=== PATIENT | female | born 1965 | race Caucasian/White ===

== ENCOUNTER 2022-02-23 16:40 | Emergency (ER) | payer OTHER, SELFPAY ==
--- NOTE | ~2022-02-23 | CT_ITS ---
EXAMINATION: CTA chest PE protocol DATE: 02/23/2022 19:25 INDICATION: Shortness of breath TECHNIQUE: Computed tomography angiography (CTA) of the chest was performed with 100 mL Omnipaque-350 intravenous contrast timed to evaluate the pulmonary arteries. Coronal maximum intensity projection 3D-reconstructions were created by the technologist. The dose-length product (DLP) was 440.56 mGy-cm. Automated exposure control and iterative reconstruction technique were employed. COMPARISON: None. FINDINGS: The pulmonary arteries are well-opacified. No pulmonary embolism is identified. Cardiomegal y is noted. There is mild dependent atelectasis. The lungs are free of acute opacities. There is no p leural effusion or pneumothorax. There is mild thoracic spondylosis. There is mild bilateral hilar ly mphadenopathy, likely reactive. A dual-lead cardiac pacemaker of the left chest wall ends with leads in expected locations. Hyperattenuating material in the distal esophagus and proximal stomach likely reflects an ingested medication. The gallbladder is surgically absent. IMPRESSION: 1. No pulmonary embolism or acute cardiopulmonary abnormality. Reviewed, dictated and finalized at location F.
--- NOTE | ~2022-02-23 | XR_ITS ---
EXAMINATION: XR chest 2V DATE: 02/23/2022 18:00 INDICATION: Shortness of breath and chest pain TECHNIQUE: PA and lateral views of the chest are obtained. COMPARISON: None available FINDINGS: The lungs are free of acute opacities. There is no pleural effusion or pneumothorax. The ca rdiomediastinal silhouette is normal. There is mild thoracic spondylosis. There is a dual-lead pacema ker of the left chest wall. Surgical clips in the upper abdomen on the lateral view are likely from p rior cholecystectomy. IMPRESSION: 1. No acute cardiopulmonary abnormality. Reviewed, dictated and finalized at location F.
[2022-02-23 17:31] VITALS: BP 88/54; PULSE 40; RESP 16; TEMP 36.3; O2SAT 97
[2022-02-23 17:37] VITALS: BP 119/93; PULSE 81; RESP 15; O2SAT 97
--- NOTE | 2022-02-23 17:42 | ECG_ITS ---
Measurements Intervals [place] Rate: 74 P: -26 ME: 146 QRS: -26 QRSD: 113 T: 151 QT: 365 QTc: 406 Interpretive Statements SINUS RHYTHM WITH FREQUENT VENTRICULAR PREMATURE COMPLEXES LEFT ATRIAL ENLARGEMENT LEFTWARD AXIS LEFT VENTRICULAR HYPERTROPHY NONSPECIFIC ST & T-WAVE ABNORMALITY NO PREVIOUS ECG AVAILABLE FOR COMPARISON Electronically Signed On 02-23-2022 21:43:25 CDT by Jose Smith M.D.
--- NOTE | 2022-02-23 17:51 | PC.NURSE ---
called lab and spoke with Jeb to add on the BNP ordered -[id number]
[2022-02-23 17:55] LABS: Basophils Percent Auto 0.3 % (0.2-1.2); Eosinophils Percent Auto 0.5 % (0-4.4); Hematocrit 45.1 % (37.0-47.0); Immature Granulocyte Absolute 0.01 K/mm3 (0.00-0.031); Immature Granulocyte Percent A 0.2 % (0-0.5); Lymphocytes Absolute Auto 1.14 K/mm3 (0.9-3.2); Lymphocytes Percent Auto 18.7 % (18.3-44.2); Mean Corpuscular HGB Conc 33.3 g/dl (32-36); Mean Corpuscular Hemoglobin 32.6 pg (26-34); Mean Platelet Volume 10.9 fl (7.4-10.4); Monocytes Absolute Auto 0.5 K/mm3 (0.1-0.6); Neutrophils Absolute Auto 4.4 K/mm3 (1.3-6.7); Neutrophils Percent Auto 72.3 % (45.5-73.1); Platelet Count Result 221 k/mm3 (150-375); Red Cell Distribution Width 13.1 % (11.5-14.5); White Blood Count 6.1 K/mm3 (4.5-10.0)
[2022-02-23 18:04] LABS: Alanine Aminotransferase 20 U/L (6-35); Albumin Level 3.9 g/dL (3.5-5.1); Alkaline Phosphatase 91 U/L (38-126); Anion Gap 6 mmol/L (8-16); Aspartate Amino Transferase 52 U/L (14-36); Bilirubin,Total 0.4 mg/dL (0.2-1.3); Blood Urea Nitrogen 14 mg/dL (7-17); Calcium 8.9 mg/dL (8.4-10.2); Carbon Dioxide 27 mmol/L (22-30); Chloride 110 mmol/L (98-107); Estimated CRCL calculation 51 ml/min; Estimated Glomerular Filt Rate 46; Glucose 140 mg/dL (65-110); Lipase 56 U/L (23-300); Potassium 3.3 mmol/L (3.4-5.0); Sodium 143 mmol/L (137-145)
[2022-02-23 18:07] LABS: INR 1.1; Partial Thromboplastin Time 29.9 SECONDS (22.3-36.8); Prothrombin Time 13.6 Seconds (11.1-14.7)
[2022-02-23 18:17] LABS: Troponin I < 0.012 ng/mL (0.000-0.034)
--- NOTE | 2022-02-23 18:23 | PC.NURSE ---
called lab and spoke with Jeb to add on the BNP and D Dimer ordered - [id number]
[2022-02-23 18:40] LABS: D Dimer 1.13 ug/mL (<0.48)
--- NOTE | 2022-02-23 18:42 | ED.CHESTPAIN ---
HPI - Chest Pain General Chief Complaint: Shortness of Breath/Dyspnea Stated Complaint: SOB Time Seen by Provider: 02/23/22 17:44 Source: patient Mode of arrival: wheelchair Limitations: no limitations History of Present Illness HPI narrative: This is a 56 year old female with history of CHF, COPD, and defibrillator who presents for evaluation of chest pain and shortness of breath. Patient states she was sitting in her recliner when she developed midsternal chest pain. This pain started 1 hour ago and she describes pain has sharp and pressure. She also reports having mid back pain as well. She denies cough, fever, nausea, vomiting, abdominal pain, dysuria. She denies history of stents or blockages. She was hospitalized at [facility] 1 week ago for CHF. She denies any changes to her diuretic but she does reports her carvedilol was increased to during this past hospitalization. complaint: chest pain Onset (ago): hour(s) (1) Timing of current episode: constant Prior episodes: Yes Onset: during rest Pain location: substernal Pain radiation: back Quality: sharp Relieving factors: nothing Exacerbating factors: nothing Associated symptoms: dyspnea Related Data Allergies Allergy/AdvReac Type Severity Reaction Status Date / Time adhesive tape AdvReac Hives Verified 02/23/22 17:43 strawberry AdvReac Rash Verified 02/23/22 17:43 Review of Systems Review of Systems: All systems reviewed & are unremarkable except as noted in HPI and below Constitutional: Constitutional: Denies chills and Denies fatigue ENT: Denies dizziness Cardiovascular: Cardiovascular: Reports chest pain, Denies rapid heart rate and Denies radiating jaw, neck or arm pain Respiratory: Respiratory: Denies chest congestion and Reports dyspnea Gastrointestinal: Gastrointestinal: Denies abdominal pain, Denies bloating, Denies constipation, Denies heartburn and Denies nausea PMFSH Past Medical History Medical History (Updated 02/23/22 @ 22:17 by Nanette Callejas MD) Brain aneurysm Cardiac defibrillator in place CHF (congestive heart failure) Emphysema/COPD Social History Social History (Updated 02/23/22 @ 18:49 by Nanette Callejas MD) Smoking status: Never smoker Comments surgical history- defibrillator placement Exam Const: General: healthy appearing Orientation/consciousness: patient oriented x3 HENMT: Head: normal to inspection Eyes: EOM: EOMs intact bilaterally Resp: Effort & Inspection: normal respiratory effort, no retractions, not tachypneic and no use of accessory muscles Auscultation: clear to auscultation bilaterally Cardio: Rate: regular rate Rhythm: regular rhythm Heart sounds: no murmurs GI: GI Palp: Yes Soft to palpation, No Tenderness to palpation present (GI), No Guarding due to palpation present (GI) and No Rigid due to palpation Auscultation: normal bowel sounds Skin: General skin exam: normal color Neuro: General: patient oriented x3, moves all extremities and CN's II-XI intact bilaterally Extrem: General: normal to inspection Psych: Mental Status: mental status grossly normal Course Reevaluation(s) Reevaluation #1: PAtient denies any chest pain, shortness of breath or dizziness. Patient's manual blood pressure was 100/78. Patient denies dizziness or lightheadness. She reports her blood pressure is normally low. Patient has heart score of 3. I discussed and offered observation and photographer model consultation in hospital. PAtient declines. Date: 02/23/22 Time: 22:12 Vital Signs Vital signs: Vital Signs Temperature 97.4 F L 02/23/22 17:31 Pulse Rate 40 L 02/23/22 17:31 Respiratory Rate 16 02/23/22 17:31 Blood Pressure 88/54 L 02/23/22 17:31 Pulse Oximetry 97 02/23/22 17:31 Oxygen Delivery Room Air 02/23/22 17:31 Temperature 97.4 F L 02/23/22 17:31 Pulse Rate 67 02/23/22 23:04 Respiratory Rate 18 02/23/22 23:04 Blood Pressure 94/68 L 06/0
[2022-02-23 18:48] LABS: NT Pro B Type Natriuretic Pept 2550 pg/mL (5-100)
[2022-02-23] MEDS: SODIUM CHLORIDE 0.9% IV 500 ML 999 ML IV CONT ×2 (18:57→21:18)
[2022-02-23] MEDS: POTASSIUM CHLORIDE 20 MEQ TABLET 40 MEQ PO (18:57)
[2022-02-23 19:04] VITALS: BP 90/67; PULSE 72; RESP 21; O2SAT 99
[2022-02-23 21:18] LABS: SARS-CoV-2 RNA PCR Negative
[2022-02-23] MEDS: ASPIRIN 81 MG CHEWABLE TABLET 324 MG PO (21:19)
[2022-02-23 21:34] LABS: Troponin I < 0.012 ng/mL (0.000-0.034)
[2022-02-23 22:26] VITALS: BP 100/78; BP 98/68
[2022-02-23 23:04] VITALS: BP 94/68; PULSE 67; RESP 18; O2SAT 99
== END 2022-02-23 23:05 | disposition home or self-care (01) ==
PROVIDERS: Emergency Medicine; Emergency Provider General Practice; PCP Internal Medicine
DX: R07.9 Chest pain, unspecified (principal); E87.6 Hypokalemia; Z20.822 Contact with and (suspected) exposure to COVID-19; I50.9 Heart failure, unspecified; J43.9 Emphysema, unspecified; Z95.810 Presence of automatic (implantable) cardiac defibrillator; I49.3 Ventricular premature depolarization; R94.31 Abnormal electrocardiogram [ECG] [EKG]; I51.7 Cardiomegaly
CPT/HCPCS: 36415; 71046; 71275; 80053; 83690; 83880; 84484; 85025; 85380; 85610; 85730; 93005; 96360; 96361; 99284; A9270; C9803; J7040; Q9967; U0003; U0005

== ENCOUNTER 2023-12-26 18:58 | Emergency (ER) | payer MEDICARE, SELFPAY ==
[2023-12-26] VITALS (7 sets, daily range): BP systolic 81–93; BP diastolic 55–76; PULSE 70–109; RESP 15–22; TEMP 36.4; O2SAT 98–100
--- NOTE | ~2023-12-26 | XR_ITS ---
EXAMINATION: XR chest 1V portable Exam Date/Time: 12/26/2023 21:10 CDT HISTORY: couh, fever; c/f pna Comparison: None. RESULT: Lines, tubes, and devices: Left chest pacer/AICD. Lungs and pleura: Minimal subsegmental opacities projecting over the left costophrenic angle. Lungs are otherwise clear. Cardiomediastinal silhouette: Stable. Other: No acute osseous or upper abdominal finding. IMPRESSION: Minimal peripheral left lower lung airspace disease may represent atelectasis or a small focus of inf ection. Reviewed, dictated and finalized at location K. IMPRESSION: Minimal peripheral left lower lung airspace disease may represent atelectasis o r a small focus of infection.
[2023-12-26 20:33] LABS: Influenza A QL RT-PCR Negative (Negative); Influenza B QL RT-PCR Negative (Negative); RSV RNA, RT-PCR Negative (Negative); SARS-CoV-2 RNA PCR Negative (Negative)
--- NOTE | 2023-12-26 20:45 | ED.GENADULT ---
HPI - General Adult General Chief complaint: Unspecified Stated complaint: myalgias, mult c/o Time Seen by Provider: 12/26/23 20:44 Source: patient and family (daughter) Mode of arrival: ambulatory Limitations: no limitations History of Present Illness HPI narrative: Patient presents with complaints of myalgias, nausea, headache, and diarrhea. Her symptoms and for the past week. She denies any fevers but does state that she has been chilled. She has had a dry cough. She states that the numerous episodes of diarrhea have caused her hemorrhoids to become irritated. She denies a sore throat. Related Data Allergies Allergy/AdvReac Type Severity Reaction Status Date / Time adhesive tape AdvReac Hives Verified 02/23/22 17:43 strawberry AdvReac Rash Verified 02/23/22 17:43 PMFSH Past Medical History Medical History Brain aneurysm Cardiac defibrillator in place CHF (congestive heart failure) Emphysema/COPD Social History Social History (Updated 02/23/22 @ 18:49 by Nanette Callejas MD) Smoking status: Never smoker Exam Narrative: GENERAL: Well-appearing, well-nourished, HEAD: Normocephalic, atraumatic. EYES: Non injected, non icteric ENT: Nares clear, no rhinorrhea or epistaxis. NECK: Supple. CHEST: Clear to auscultation Bilaterally without appreciable wheezes or consolidation. no crackles. No respiratory distress. Nonlabored in speaking in full sentences HEART: tachycardic rate and rhythm. . ABDOMEN: Soft, nondistended. EXTREMITIES: Normal range of motion. No edema. SKIN: Warm, dry, no rash. NEURO: No focal deficits. Alert and oriented. PSYCH: Normal mood and affect. Course Vital Signs Vital signs: Vital Signs Temperature 97.6 F 12/26/23 18:59 Pulse Rate 109 H 12/26/23 18:59 Respiratory Rate 20 12/26/23 18:59 Blood Pressure 88/56 L 12/26/23 18:59 Pulse Oximetry 100 12/26/23 18:59 Oxygen Delivery Room Air 12/26/23 18:59 Temperature 97.6 F 12/26/23 18:59 Pulse Rate 94 12/27/23 00:23 Respiratory Rate 15 12/27/23 00:23 Blood Pressure 99/53 L 12/27/23 00:23 Pulse Oximetry 100 12/27/23 00:23 Oxygen Delivery Room Air 12/26/23 18:59 Medical Decision Making [facility] Narrative Medical decision making narrative: Patient presents with complaints of myalgias, nausea, headache, and diarrhea. Her symptoms and for the past week. She denies any fevers but does state that she has been chilled. She has had a dry cough. in the emergency department she is afebrile with vital signs notable for tachycardia and hypotension. Her 4plex test is negative. will obtain labs including urinalysis and will obtain chest x-ray. She has an JOE on CKD. 1st L of fluid given and BMP obtained as 2nd liter started. Hypokalemia repleted. Patient reassessed and states she is still feeling about the same. There is an improvement but not resolution with BMP result. 2nd L finished . Per review of the EMR, patient's blood pressure does tend to run low and their MAPs are ok today. Patient reassessed and she is sitting upright in bed now. Appears to be feeling better and she states she improving. We discussed the careful balance between dehydration and hydration given her kidney function and CHF given that she takes Lasix but also got a bit dehydrated with the diarrhea. Has a follow up appointment with her PCP tomorrow, 12/28/23 in the afternoon. Discharged in stable improved condition but with return precautions. Will be spending tonight at her daughter's house. Differential Diagnosis Differential Diagnosis: acute viral syndrome, pneumonia, bronchitis, urinary tract infection, rhabdomyolysis, electrolyte abnormalities Vital Signs Vital Signs: Vital Signs Temperature 97.6 F 12/26/23 18:59 Pulse Rate 109 H 12/26/23 18:59 Respiratory Rate 20 12/26/23 18:59 Blood Pressure 88/56 L 12/26/23 18:59 Pulse Oximetry 100 12/26/23
[2023-12-26] MEDS: SODIUM CHLORIDE 0.9% IV 1,000 ML 999 ML IV CONT ×2 (21:07→22:14)
[2023-12-26] MEDS: ONDANSETRON INJ 4 MG/2 ML VIAL IV PUSH (21:07)
[2023-12-26 21:20] LABS: Basophils Percent Auto 0.5 % (0.2-1.2); Eosinophils Percent Auto 0.4 % (0-4.4); Hematocrit 39.9 % (37.0-47.0); Hemoglobin 12.8 g/dL (12.0-15.0); Immature Granulocyte Absolute 0.01 K/mm3 (0.00-0.031); Immature Granulocyte Percent A 0.2 % (0-0.5); Lymphocytes Absolute Auto 1.25 K/mm3 (0.9-3.2); Lymphocytes Percent Auto 22.9 % (18.3-44.2); Mean Corpuscular HGB Conc 32.1 g/dl (32-36); Mean Corpuscular Hemoglobin 30.5 pg (26-34); Mean Corpuscular Volume 95.2 fl (80-100); Mean Platelet Volume 12.8 fl (7.4-10.4); Monocytes Absolute Auto 0.5 K/mm3 (0.1-0.6); Monocytes Percent Auto 9.2 % (2.6-8.5); Neutrophils Absolute Auto 3.7 K/mm3 (1.3-6.7); Neutrophils Percent Auto 66.8 % (45.5-73.1); Platelet Count Result 128 k/mm3 (150-375); Red Blood Count 4.19 M/mm3 (4.2-5.4); Red Cell Distribution Width 16.1 % (11.5-14.5); White Blood Count 5.5 K/mm3 (4.5-10.0)
[2023-12-26 21:35] LABS: Alanine Aminotransferase 48 U/L (6-35); Albumin Level 2.8 g/dL (3.5-5.1); Alkaline Phosphatase 70 U/L (38-126); Anion Gap 8 mmol/L (4-12); Aspartate Amino Transferase 35 U/L (14-36); Blood Urea Nitrogen 66 mg/dL (7-17); Calcium 8.3 mg/dL (8.4-10.2); Carbon Dioxide 19 mmol/L (22-30); Chloride 104 mmol/L (98-107); Estimated CRCL calculation 29 ml/min; Estimated Glomerular Filt Rate 24; Glucose 120 mg/dL (65-110); Potassium 3.3 mmol/L (3.4-5.0); Sodium 131 mmol/L (137-145)
[2023-12-26 21:41] LABS: Creatine Kinase 248 U/L (30-135)
[2023-12-26] MEDS: ACETAMINOPHEN 500 MG TABLET 1000 MG PO (21:43)
[2023-12-26 22:06] LABS: Lactic Acid Reflex 1.5 mmol/L (0.7-2.0)
[2023-12-26] MEDS: POTASSIUM BICARBONATE 25 MEQ TABEF PO (22:14)
[2023-12-26 23:02] LABS: Anion Gap 9 mmol/L (4-12); Blood Urea Nitrogen 64 mg/dL (7-17); Carbon Dioxide 17 mmol/L (22-30); Chloride 106 mmol/L (98-107); Estimated CRCL calculation 32 ml/min; Estimated Glomerular Filt Rate 27; Glucose 107 mg/dL (65-110); Potassium 3.7 mmol/L (3.4-5.0); Sodium 132 mmol/L (137-145)
[2023-12-26 23:48] LABS: Appearance Urine Clear (Clear); Bacteria Urine None Seen /hpf; Bilirubin Urine 1+ (Negative); Blood Urine Negative (Negative); Color Urine Dark Yellow (Yellow); Glucose Urine UA Negative (Negative); Ketones Urine Negative (Negative); Leukocyte Esterase Ur Negative LEU/UL (Negative); Need Manual Microscopic Reviewed; Nitrate Urine Negative (Negative); Non Pathogenic Casts >20; Protein Urine 1+ mg/dL (Negative); Specific Grav Ur 1.028 (1.001-1.035); Squamous Epithelial Cell Urine Few /hpf (Few); WBC Urine 0-5 /hpf (0-3)
[2023-12-26 23:50] LABS: Add Urine Microscopic? YES
[2023-12-27 00:23] VITALS: BP 99/53; PULSE 94; RESP 15; O2SAT 100
== END 2023-12-27 00:25 | disposition home or self-care (01) ==
PROVIDERS: Emergency Medicine; Emergency Provider Student in an Organized Health Care Education/Training Program; PCP Internal Medicine
DX: N17.9 Acute kidney failure, unspecified (principal); N18.9 Chronic kidney disease, unspecified; R19.7 Diarrhea, unspecified; I50.9 Heart failure, unspecified; J43.9 Emphysema, unspecified; Z95.810 Presence of automatic (implantable) cardiac defibrillator
CPT/HCPCS: 36415; 71045; 80048; 80053; 81001; 82550; 83605; 83735; 85025; 87637; 96361; 96374; 99284; A9270; J2405; J7030

== ENCOUNTER 2023-12-27 16:40 | Inpatient (IN) | payer MEDICARE, SELFPAY ==
[2023-12-27] VITALS (10 sets, daily range): BP systolic 68–126; BP diastolic 50–80; PULSE 94–112; RESP 17–19; TEMP 35.6; O2SAT 94–98
--- NOTE | ~2023-12-27 | XR_ITS ---
XR chest PICC line DATE: 12/28/2023 12:45 INDICATION: PICC line insertion TECHNIQUE: Portable upright AP chest on December 28, 2023 at 1239 hours COMPARISON: None FINDINGS: Right upper extremity PIC catheter tip overlies the lower aspect of the superior vena cava. Cardiomegaly. Aortic calcification and mild unfolding. There is pulmonary vascular congestion and redistribution, mild prominence of minor fissure, suggesti ng mild congestive heart failure. Minimal if any pleural effusion is noted. The lungs are clear of infiltrate or consolidation. No pneu mothorax. Pacemaker device is noted on the left, with leads overlying right atrium and right ventricle. Osteopenia. IMPRESSION: Right upper extremity PIC catheter tip overlies lower aspect of superior vena cava Cardiomegaly, congestive heart failure Left AICD/pacemaker device Reviewed, dictated and finalized at Location A. Reviewed, dictated and finalized at location B. IMPRESSION: Right upper extremity PIC catheter tip overlies lower aspect of sup erior vena cava Cardiomegaly, congestive heart failure Left AICD/pacemaker device
--- NOTE | ~2023-12-27 | CT_ITS ---
EXAMINATION: CT chest abdomen pelvis wo con DATE: 12/27/2023 22:35 INDICATION: Congestive heart failure and chronic kidney disease presenting with diarrhea. TECHNIQUE: Computed tomography (CT) of the chest, abdomen, and pelvis was performed without intraveno us contrast. Automated exposure control and iterative reconstruction technique were employed. The dos e-length product was 1114.94 mGy-cm. COMPARISON: None FINDINGS: CHEST CT: Mild groundglass opacities and smooth septal line thickening at the basilar aspect of the bilateral l ower lobes consistent with mild pulmonary edema. Small calcified right lower lobe nodule consistent w ith old granulomatous disease. No pleural effusion. Cardiomegaly. Atherosclerotic coronary artery jennifer cifications. Dual lead pacemaker/AICD seen with lead tips at the right atrium and right ventricle. Th ere is small amount of fluid at the superior pericardial recesses without esau pericardial effusion. Thoracic aorta is normal in caliber. No pathologically enlarged thoracic lymphadenopathy. Mild thora cic spondylosis with chronic appearing mild anterior wedging of T6 and T7. ABDOMEN/PELVIS CT: Small sliding-type hiatal hernia. Cholecystectomy clips the gallbladder fossa. Liver, spleen, pancrea s, bilateral adrenal glands and kidneys are normal. Normal appendix. There is mild colonic diverticul osis with a sigmoid predominance. There is no adjacent inflammatory change to suggest diverticulitis . Small amount of fluid in the proximal colon consistent with given history of diarrhea. No bowel ob struction. Bladder, uterus and bilateral adnexa are unremarkable. No free intraperitoneal gas or flui d. No pathologically enlarged abdominal or pelvic lymphadenopathy. Mild lumbar spondylosis. IMPRESSION: 1. Congestive heart failure with cardiomegaly and mild pulmonary edema. Lung bases. 2. Small amount of fluid in the proximal colon consistent with nonspecific diarrhea. No other acute i ntra-abdominal/pelvic process. 2.. 3. Small sliding-type hiatal hernia. Reviewed, dictated and finalized at location A. IMPRESSION: 1. Congestive heart failure with cardiomegaly and mild pulmonary edema. Lung ba ses. 2. Small amount of fluid in the proximal colon consistent with nonspecific diar gary. No other acute intra-abdominal/pelvic process. 2.. 3. Small sliding-type hiatal hernia.
--- NOTE | ~2023-12-27 | XR_ITS ---
EXAMINATION: XR abdomen gastric tube insert DATE: 12/29/2023 04:30 INDICATION: Orogastric tube placement. TECHNIQUE: A supine view of the abdomen was obtained. COMPARISON: None. FINDINGS: The lower abdomen is excluded. The nasogastric tube tip is in the stomach. There are surgic al clips in the abdomen. IMPRESSION: 1. Nasogastric tube tip in the stomach. Reviewed, dictated and finalized at location A.
--- NOTE | ~2023-12-27 | XR_ITS ---
EXAMINATION: XR chest 1V portable DATE: 12/27/2023 18:16 INDICATION: COPD and CHF presenting with hypoxia TECHNIQUE: frontal view of the chest was obtained. COMPARISON: Chest radiograph dated 12/26/2023 FINDINGS: The lungs remain clear with no focal airspace opacities, pulmonary edema, pleural effusion or pneumot horax. Heart size remains within normal limits for AP technique. Dual lead pacemaker/AICD seen with l eva projecting over the expected locations of the right atrium and right ventricle. IMPRESSION: 1. No acute cardiopulmonary disease. Reviewed, dictated and finalized at location A.
--- NOTE | ~2023-12-27 | XR_ITS ---
EXAMINATION: XR chest ET placement DATE: 12/29/2023 04:30 INDICATION: Intubation. TECHNIQUE: A single frontal view of the chest was obtained. COMPARISON: Chest single view 12/28/2023, chest CT 12/27/2023 FINDINGS: There are airspace opacities in all right lung zones and in left lower lung zone. No pleura l effusion or pneumothorax. Cardiomegaly is noted. The endotracheal tube tip is 6.3 cm above the aundrea na. The nasogastric tube tip is in the stomach. There is a left chest wall pacer with leads in the ri ght atrium and right ventricle. A right upper extremity peripherally inserted central venous catheter (PICC) is seen with tip in the superior vena cava. IMPRESSION: 1. Worsened airspace opacities in right lung and left lower lung zone, consistent with pneumonia. 2. Cardiomegaly. Reviewed, dictated and finalized at location A. IMPRESSION: 1. Worsened airspace opacities in right lung and left lower lung zone, consiste nt with pneumonia. 2. Cardiomegaly.
--- NOTE | 2023-12-27 17:35 | ED.NAVMDI ---
HPI - Nausea/Vomiting/Diarrhea General Chief complaint: Nausea/Vomiting/Diarrhea Stated complaint: N/V/D - low pulse ox Time Seen by Provider: 12/27/23 17:08 Source: patient and family (daughter, son) Mode of arrival: EMS Limitations: no limitations History of Present Illness HPI Narrative: Patient is a 58-year-old female with past medical history COPD and CHF who presents with report of hypoxia. Of note, patient was seen yesterday for symptoms diarrhea and myalgias. She was found to have an elevated creatinine which improved slightly after 1 unit of fluids. She was given a 2nd L of fluids and upon reassessment was found to be feeling better. She was discharged with plans to follow-up with her primary care physician today since she already had an appointment scheduled. She was noted to be hypotensive at times during yesterday's ED visit and, per chart review, this is chronic. Patient states she is still having diarrhea and this is chief complaint as well as feeling tired and dizzy. She denies any shortness of breath or abdominal pain. No chest pain or fever. There is now documentation of a fax in her chart from a cardiology visit in Sep 2023 that provides more information about patient's multiple medical conditions. Per documentation from [facility] patient is on the following medications: Entresto 97/103, furosemide 80 mg once daily, carvedilol 12.5 mg, spironolactone, magnesium oxide, Proventil, gabapentin, aspirin Related Data Allergies Allergy/AdvReac Type Severity Reaction Status Date / Time adhesive tape AdvReac Hives Verified 02/23/22 17:43 strawberry AdvReac Rash Verified 02/23/22 17:43 [facility] Past Medical History Medical History (Updated 12/28/23 @ 00:13 by Kimberly Espinoza MD) Benign essential HTN Brain aneurysm R MCA bifurcation, 3.3mmx2.5mm (stable 05/2019); 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 Social History Social History (Updated 02/23/22 @ 18:49 by Nanette Callejas MD) Smoking status: Never smoker Exam Narrative: GENERAL: chronically ill appear, and in no acute distress. Appears older than stated age HEAD: Normocephalic, atraumatic. EYES: Non injected, non icteric ENT: Nares clear, no rhinorrhea or epistaxis. NECK: Supple. CHEST: Clear to auscultation. No respiratory distress. HEART: Borderline tachycardic rate and rhythm. . ABDOMEN: Soft, nondistended. EXTREMITIES: Normal range of motion. 2+ bilateral pitting edema. SKIN: Warm, dry, no rash though flushed along superior aspect of chest (not warm) NEURO: No focal deficits. Alert and oriented x3. PSYCH: Flat mood and affect. Course Vital Signs Vital signs: Vital Signs Temperature 96.1 F L 12/27/23 16:45 Pulse Rate 101 H 12/27/23 16:45 Respiratory Rate 18 12/27/23 16:45 Blood Pressure 97/80 L 12/27/23 16:45 Pulse Oximetry 98 12/27/23 16:45 Oxygen Delivery Room Air 12/27/23 16:45 Temperature 96.1 F L 12/27/23 16:45 Pulse Rate 112 H 12/27/23 23:29 Respiratory Rate 19 12/27/23 23:29 Blood Pressure 85/63 L 12/27/23 23:29 Pulse Oximetry 98 12/27/23 21:04 Oxygen Delivery Room Air 12/27/23 16:45 MDM - Nausea/Vomiting/Diarrhea MDM Narrative Medical decision making narrative: Patient is a 58-year-old female with past medical history COPD and CHF who presents with repor
--- NOTE | 2023-12-27 17:36 | ECG_ITS ---
Measurements Intervals [place] Rate: 96 P: MT: 0 QRS: -16 QRSD: 130 T: 120 QT: 369 QTc: 469 Interpretive Statements ATRIAL FIBRILLATION WITH ABERRANT CONDUCTION OR VENTRICULAR PREMATURE COMPLEXES COMPARED TO ECG 02/23/2022 17:42:32 ATRIAL FIBRILLATION NOW PRESENT Electronically Signed On 12-28-2023 11:00:40 CDT by Surekha White M.D.
[2023-12-27 18:08] LABS: Alveolar/Arterial O2 Gradient 27.3 mmHg; Base Excess ABG -7.8 mEq/l (+/-2.0); Device ROOM AIR; Fractional Inspired Oxygen 21 %; Oxygen Content ABG 19.2 %vol (16.0-22.0); Oxygen Saturation ABG 96.6 % (95.0-100.0); Oxyhemoglobin 93.3 % THb (90.0-100.0); PCO2 ABG 28.7 mmHg (35.0-45.0); PO2 ABG 88.1 mmHg (80.0-100.0); Site Drawn LEFT BRACHIAL; Total Hemoglobin 14.6 g/dL (12.0-18.0); pH ABG 7.365 (7.350-7.450)
[2023-12-27 18:35] LABS: Basophils Percent Auto 0.4 % (0.2-1.2); Eosinophils Percent Auto 0.6 % (0-4.4); Hematocrit 44.9 % (37.0-47.0); Hemoglobin 14.2 g/dL (12.0-15.0); Immature Granulocyte Absolute 0.01 K/mm3 (0.00-0.031); Immature Granulocyte Percent A 0.2 % (0-0.5); Immature Platelet Fraction Pct 8.4 % (0.9-11.2); Lymphocytes Absolute Auto 1.49 K/mm3 (0.9-3.2); Lymphocytes Percent Auto 27.7 % (18.3-44.2); Mean Corpuscular HGB Conc 31.6 g/dl (32-36); Mean Corpuscular Hemoglobin 30.3 pg (26-34); Mean Corpuscular Volume 95.9 fl (80-100); Mean Platelet Volume 12.9 fl (7.4-10.4); Monocytes Absolute Auto 0.5 K/mm3 (0.1-0.6); Monocytes Percent Auto 9.5 % (2.6-8.5); Neutrophils Absolute Auto 3.3 K/mm3 (1.3-6.7); Neutrophils Percent Auto 61.6 % (45.5-73.1); Platelet Count Result 140 k/mm3 (150-375); Red Blood Count 4.68 M/mm3 (4.2-5.4); Red Cell Distribution Width 16.4 % (11.5-14.5); White Blood Count 5.4 K/mm3 (4.5-10.0)
[2023-12-27 18:43] LABS: Alanine Aminotransferase 57 U/L (6-35); Albumin Level 3.3 g/dL (3.5-5.1); Alkaline Phosphatase 82 U/L (38-126); Anion Gap 10 mmol/L (4-12); Aspartate Amino Transferase 40 U/L (14-36); Bilirubin,Total 1.1 mg/dL (0.2-1.3); Blood Urea Nitrogen 65 mg/dL (7-17); Calcium 8.7 mg/dL (8.4-10.2); Carbon Dioxide 16 mmol/L (22-30); Chloride 107 mmol/L (98-107); Estimated CRCL calculation 34 ml/min; Estimated Glomerular Filt Rate 27; Glucose 98 mg/dL (65-110); Sodium 133 mmol/L (137-145)
[2023-12-27 18:52] LABS: NT Pro B Type Natriuretic Pept 11800 pg/mL (19.9-100)
[2023-12-27 19:17] LABS: D Dimer 1.54 ug/mL (<0.48)
[2023-12-27 19:22] LABS: Influenza A QL RT-PCR Negative (Negative); Influenza B QL RT-PCR Negative (Negative); RSV RNA, RT-PCR Negative (Negative); SARS-CoV-2 RNA PCR Negative (Negative)
--- NOTE | 2023-12-27 21:11 | PM.IMHP ---
H&P: HPI History of Present Illness Date/Time: 12/27/23 21:11 Chief Complaint: Cough and shortness of breath Narrative: Presented to the emergency room with myalgia nausea headache and diarrhea. Has extensive past medical history of COPD, congestive heart failure attributed reduced ejection fraction EF of 20% with pacemaker and ICD. Comes to the hospital with no fever just generalized weak not no cough no nausea no vomiting +1 pitting edema of the leg she states she has gained about 5-6 lb the last few days. She was recently seen 2 days prior to admission follows up with the settlement clerk patient's daughters at bedside. Review of Systems Review of Systems: No fevers chills nausea vomiting. No double vision no blurry vision. No difficulty hearing or sinus complaints. chest pain shortness of breath no fever palpitation dizziness ankle swelling. has coughing wheezing No nausea constipation few episodes of diarrhea no abdominal pain reflux. No urgency frequency of urination. No hematuria. No skin rash eczema. No anxiety depression difficulty sleeping. No bleeding gums enlarged glands. No muscle ache back pain joint stiffness. No loss of strength numbness headache tremor or loss of memory. 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 Social History Social History (Updated 02/23/22 @ 18:49 by Nanette Callejas MD) Smoking status: Never smoker Meds Home Medications and Allergies Allergies Allergy/AdvReac Type Severity Reaction Status Date / Time adhesive tape AdvReac Hives Verified 02/23/22 17:43 strawberry AdvReac Rash Verified 02/23/22 17:43 Vital Signs Vital Signs - 24 hr 12/27/23 16:45 12/27/23 19:25 12/27/23 20:47 Temperature 35.6 C L Pulse Rate 101 H 109 H Respiratory Rate 18 18 Blood Pressure 97/80 L 126/74 75/62 L Pulse Oximetry 98 96 Oxygen Delivery Room Air 12/27/23 21:04 Temperature Pulse Rate 101 H Respiratory Rate 17 Blood Pressure 80/50 L Pulse Oximetry 98 Oxygen Delivery Exam Narrative: GENERAL: Well appearing, no acute distress. HEAD: Normocephalic, atraumatic. NECK: Supple. No adenopathy, no masses. RESPIRATORY: respirations nonlabored. , has bilateral rales, minimal wheezing. CARDIOVASCULAR: Regular rate and rhythm without murmurs, . Peripheral pulses 2+ and equal bilaterally. ABDOMINAL: Soft, nontender, nondistended, no hepatosplenomegaly. Normoactive BS. MUSCULOSKELETAL: no Epigastric and no hypochondrial tenderness SKIN: Warm, dry, NEURO: A&O X3. Moves all extremities H&P: Results Labs Labs: Short CBC 12/27/23 Range/Units 18:26 WBC 5.4 (4.5-10.0) K/mm3 Hgb 14.2 (12.0-15.0) g/dL Hct 44.9 (37.0-47.0) % Plt Count 140 L (150-375) k/mm3 BMP 12/27/23 18:26 Sodium 133 L Potassium 4.0 Chloride 107 Carbon Dioxide 16 L BUN 65 H Creatinine 1.90 H Glucose 98 Calcium 8.7 Liver Function 12/27/23 Range/Units 18:26 Total Bilirubin 1.1 (0.2-1.3) mg/dL AST 40 H (14-36) U/L ALT 57 H (6-35) U/L Alkaline Phosphatase 82 (38-126) U/L Albumin 3.3 L (3.5-5.1) g/dL Assessment and Plan Assessment and
[2023-12-27 23:10] LABS: Lactic Acid Reflex 1.7 mmol/L (0.7-2.0)
[2023-12-27 23:27] LABS: Procalcitonin 0.2 ng/mL
[2023-12-28] VITALS (47 sets, daily range): BP systolic 55–138; BP diastolic 36–121; PULSE 74–121; RESP 13–34; TEMP 35.6–37.5; O2SAT 96–100; BMI 35.8
--- NOTE | 2023-12-28 00:16 | ADMGEN ---
This patient, Gertrude Najera, was admitted to IMU Room 231-01. Patient/family oriented to hospital policies and general routines including ID bracelet, bed and alarms, visiting hours, pain management, procedures, bathroom and other care routines, personal items, smoking policy, room service/diet, and visiting hours. Information on how to activate the Rapid Response Team has been discussed. Patient/Family are encouraged to report perceived risks to care and to ask questions if they do not understand what they are told or what they should do.
[2023-12-28 00:26] LABS: Basophils Percent Auto 0.6 % (0.2-1.2); Hematocrit 42.7 % (37.0-47.0); Hemoglobin 13.5 g/dL (12.0-15.0); Immature Granulocyte Absolute 0.02 K/mm3 (0.00-0.031); Immature Granulocyte Percent A 0.4 % (0-0.5); Immature Platelet Fraction Pct 7.9 % (0.9-11.2); Lymphocytes Absolute Auto 1.21 K/mm3 (0.9-3.2); Lymphocytes Percent Auto 23.5 % (18.3-44.2); Mean Corpuscular HGB Conc 31.6 g/dl (32-36); Mean Corpuscular Hemoglobin 30.3 pg (26-34); Mean Platelet Volume 13.3 fl (7.4-10.4); Monocytes Absolute Auto 0.6 K/mm3 (0.1-0.6); Monocytes Percent Auto 12.3 % (2.6-8.5); Neutrophils Absolute Auto 3.3 K/mm3 (1.3-6.7); Neutrophils Percent Auto 63.2 % (45.5-73.1); Nucleated Red Blood Cells Perc 0.6 % (0.0-0.2); Platelet Count Result 139 k/mm3 (150-375); Red Blood Count 4.45 M/mm3 (4.2-5.4); Red Cell Distribution Width 16.5 % (11.5-14.5); White Blood Count 5.1 K/mm3 (4.5-10.0)
[2023-12-28 00:28] LABS: Alanine Aminotransferase 56 U/L (6-35); Albumin Level 3.1 g/dL (3.5-5.1); Alkaline Phosphatase 78 U/L (38-126); Anion Gap 9 mmol/L (4-12); Aspartate Amino Transferase 43 U/L (14-36); Blood Urea Nitrogen 68 mg/dL (7-17); Carbon Dioxide 16 mmol/L (22-30); Chloride 108 mmol/L (98-107); Estimated CRCL calculation 34 ml/min; Estimated Glomerular Filt Rate 27; Glucose 98 mg/dL (65-110); Potassium 3.9 mmol/L (3.4-5.0); Sodium 133 mmol/L (137-145)
[2023-12-28 00:37] LABS: NT Pro B Type Natriuretic Pept 11200 pg/mL (19.9-100)
--- NOTE | 2023-12-28 00:49 | PC.NURSE ---
MD notified of patient's blood pressures upon admission to IMU room 231. L. arm BP 75/53 and R. arm BP 68/38. MD with new orders to softly hydrate patient with 0.45% sodium chloride at 80cc/hr and to check vital signs every 4 hrs. MD would like to be notified when SBP is in the 70s.
[2023-12-28] MEDS: SODIUM CHLORIDE 0.45% 1,000 ML 80 ML IV CONT (01:00)
[2023-12-28] MEDS: PANTOPRAZOLE 40 MG TABLET PO (08:48)
[2023-12-28 09:46] LABS: Toxigenic C. Diff POSITIVE (NEGATIVE)
--- NOTE | 2023-12-28 10:44 | PM.CNCAR ---
Assessment and Plan Assessment and plan (1) Chronic hypotension: Code(s): I95.89 - Other hypotension Status: Acute Assessment and Plan: Patient is severely hypotensive baseline complicated by atrial fibrillation, intravascular volume depletion related to fluid loss secondary to C difficile colitis, severe LV systolic dysfunction and home medications. Her cardiac medications have been held thus far. Lasix was not given in the ER secondary to hypotension. Given recurrent systolic blood pressures in the 70s discussed with critical care recommendation to transfer the ICU for pressor support and more intensive management. Patient has now developed hypovolemic shock which may be life-threatening. Consider resumption of guideline directed medical therapy when hemodynamics permit. Continue cultures, antibiotics. Send urinalysis. Check TSH. Cautious IV fluid bolus as appropriate. Hold off on IV diuresis for the time being. At this time, her hypotension does not appear to be a primary cardiogenic shock although this is likely a mixed picture. Patient is critically ill at this time with multiple comorbidities. Prognosis is guarded. I spent 82 minutes in the care of this patient at bedside with discussions with the patient and examination, discussions with her daughter at [facility], nursing, Critical Care, chart review, outside medical records from her Heel Seat Pounder, medical decision making, and documentation. (2) Nonischemic cardiomyopathy: Code(s): I42.8 - Other cardiomyopathies Status: Acute Assessment and Plan: Patient with nonischemic cardiomyopathy EF reported 10-20% which is chronic. She has chronic heart failure with reduced ejection fraction but does not appear to be acutely volume overloaded at this time and fact intravascular volume depleted. Guideline directed therapy has been held secondary to hypotension and acute on chronic kidney injury. Nonetheless, patient remains at high risk for complications including , worsening renal failure, ventricular arrhythmias. She has an ICD. Hesitant to initiate dobutamine even if warranted given presence of underlying atrial fibrillation other risk for inducing significant tachycardic response which would be counterproductive. No were no would be an alternative, however, given her underlying acute kidney injury caution in the be taking this regard as well. At this time she is not significantly volume overloaded over with clear evidence of significant hypoperfusion so there is no role for Milrinone at present. Nonetheless, continue close observation is necessary as this may change. (3) C. difficile diarrhea: Code(s): A04.72 - Enterocolitis due to Clostridium difficile, not specified as recurrent Status: Acute Assessment and Plan: She is C diff positive with ongoing diarrhea resulting in intravascular volume depletion contribute to acute on chronic kidney injury and as well as worsening of her chronic hypotension. Management per primary service. Continue judicious fluid replacement with very close eye on volume status. She was previously on Entresto half tablet 97/103 mg twice daily, carvedilol 12.5 mg twice daily, spironolactone 25 mg daily, Lasix 80 mg daily. Etiology for underlying C diff remains unclear she denies recent illnesses, antibiotics further significant change in this regard. She denies a prior history of C diff colitis. (4) Atrial fibrillation: Code(s): I48.91 - Unspecified atrial fibrillation Status: Acute Assessment and Plan: Recent diagnosis of new onset atrial fibrillation 2 weeks ago by her marshmallow maker by device interrogation for which Eliquis 5 mg twice daily was recommended and she has been compliant as reported. As an outpatient she was maintained on carvedilol 12.5 mg twice daily. Heart rate is reasonably controlled and as such will hold off on resuming carvedilol until her blood pressure has stabilized. Gi
--- NOTE | 2023-12-28 11:51 | WPDCNINT ---
Assessment and Plan Assessment and plan (1) Hypotension: Code(s): I95.9 - Hypotension, unspecified Status: Acute Assessment and Plan: Patient has low blood pressure baseline but now presented with hypotension which has been persistent. Lactic acid and procalcitonin level were normal. This could be secondary to hypovolemia from diarrhea and poor p.o. intake along with cardiogenic component from her nonischemic cardiomyopathy. She also is in AFib but has controlled ventricular rate Transfer patient to ICU Check TSH and cortisol Will give 500 mL of 5% albumin, continue IV fluids but change to LR Check cortisol TSH Start phenylephrine infusion to target SBP above 90 (2) Nonischemic cardiomyopathy: Code(s): I42.8 - Other cardiomyopathies Status: Acute Assessment and Plan: Patient evaluated by Cardiology Hold Aldactone Entresto beta-stephanie at this time (3) Atrial fibrillation: Code(s): I48.91 - Unspecified atrial fibrillation Status: Acute Assessment and Plan: Ventricular rate is controlled Continue anticoagulation Telemetry monitoring (4) [id number] kidney injury: Code(s): N17.9 - Acute kidney failure, unspecified; N18.9 - Chronic kidney disease, unspecified Status: Acute Assessment and Plan: Likely secondary to dehydration hypovolemia hypotension Conservative IV fluids he phenylephrine maintain perfusion No kidney stone or obstruction on the CT scan Check CK, urine electrolytes Monitor urine output electrolytes and creatinine (5) C. difficile diarrhea: Code(s): A04.72 - Enterocolitis due to Clostridium difficile, not specified as recurrent Status: Acute Assessment and Plan: Patient tested for C diff CT abdomen pelvis IMPRESSION: 1. Congestive heart failure with cardiomegaly and mild pulmonary edema. Lung bases. 2. Small amount of fluid in the proximal colon consistent with nonspecific diarrhea. No other acute intra-abdominal/pelvic process. 3. Small sliding-type hiatal hernia. P.o. vancomycin, isolation (6) Emphysema/COPD: Qualifiers: Emphysema type: centrilobular Qualified Code(s): J43.2 - Centrilobular emphysema Code(s): J43.9 - Emphysema, unspecified Status: Acute Assessment and Plan: Patient has history of COPD secondary to chronic smoking. Does not appear to be in exacerbation Bronchodilators ordered (7) Tobacco abuse: Code(s): Z72.0 - Tobacco use Status: Acute Assessment and Plan: Patient smokes 1 pack per day and has been smoking 40 years. Patient was counseled and encouraged to quit smoking but patient does not seem interested at this time Plan DVT prophylaxis -hold Eliquis and will start heparin infusion at this time Stress ulcer prophylaxis -she is on Protonix Nutrition -heart healthy diet Code Status -patient wishes to be Full Code Total Critical Care Time - 35 minutes Due to a high probability of clinically significant, life threatening deterioration, the patient required my highest level of preparedness to intervene emergently and I personally spent this critical care time directly and personally managing the patient. This critical care time included obtaining a history; examining the patient; pulse oximetry; ordering and review of studies; arranging urgent treatment with development of a management plan; evaluation of patient's response to treatment; frequent reassessment; and discussions with other providers. It was exclusive of separately billable procedures and treating other patients and teaching time. 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
[2023-12-28] MEDS: LIDOCAINE HCL 1% PF INJ 5 ML VIAL INFILTRATE (12:00)
--- NOTE | 2023-12-28 12:12 | PC.NURSE ---
1100- Dr. Berry in room to [facility] pt - 1140- Dr. Fuentes @ 1130 to evaluate pt-daughter at bedside- orders received - 1140 Order to transfer to ICU- report given to Samira Downey RN- pt transferred to ICU 8 via bed accompanied by staff.
[2023-12-28] MEDS: ALBUMIN HUMAN 5% 25 GM/500 ML BTL IV CONT (12:47)
[2023-12-28] MEDS: SERTRALINE HCL 25 MG TABLET PO (12:54)
[2023-12-28] MEDS: MIDODRINE HCL 10 MG TABLET PO ×2 (12:55→18:11)
[2023-12-28] MEDS: VANCOMYCIN HCL 125 MG ORAL CAPSULE PO ×2 (12:55→18:11)
[2023-12-28] MEDS: LACTATED RINGERS 1,000 ML 75 ML IV CONT (13:39)
[2023-12-28] MEDS: CENTRAL LINE FLUSH 10 ML IV PUSH ×2 (13:42→21:20)
--- NOTE | 2023-12-28 13:48 | PM.IMPN ---
Progress Note: A&P Assessment and Plan (1) CHF (congestive heart failure): Qualifiers: Heart failure type: systolic Heart failure chronicity: acute on chronic Qualified Code(s): I50.23 - Acute on chronic systolic (congestive) heart failure Code(s): I50.9 - Heart failure, unspecified Status: Acute (2) CKD (chronic kidney disease), stage III: Code(s): N18.30 - Chronic kidney disease, stage 3 unspecified Status: Acute (3) S/P coil embolization of cerebral aneurysm: Code(s): Z98.890 - Other specified postprocedural states Status: Acute (4) Emphysema/COPD: Qualifiers: Emphysema type: centrilobular Qualified Code(s): J43.2 - Centrilobular emphysema Code(s): J43.9 - Emphysema, unspecified Status: Acute (5) Diarrhea: Qualifiers: Diarrhea type: unspecified type Qualified Code(s): R19.7 - Diarrhea, unspecified Code(s): R19.7 - Diarrhea, unspecified Status: Inactive (6) Hyperlipidemia: Qualifiers: Hyperlipidemia type: pure hypertriglyceridemia Qualified Code(s): E78.1 - Pure hyperglyceridemia Code(s): E78.5 - Hyperlipidemia, unspecified Status: Acute Plan Heart failure with reduced ejection fraction. EF 20% Systolic pressures are low very tough to keep the balance of fluids and diurese Cardiology and ICU MD on board difficult fluid management Pt transferred to ICU for higher level of care CRF stage III And gentle hydration. fluids changed to LR by ICU MD CR 1.94 watch UO Severe hypotension Pt to have LR fluids albumin, midodrine and Start phenylephrine infusion to target SBP above 90 diuretics on hold presently due to severe hypotension Cardology MD aware of PT COPD/acute respiratory failure with hypoxemia Patient advice to quit smoking. Bronchodilators on board cdiff positive oral vancomycin started Time Spent With Patient Time: 50 minutes spent with pt Subjective Date/time seen: 12/28/23 13:48 Interval history: Presented to the emergency room with myalgia nausea headache and diarrhea.? Has extensive past medical history of COPD, congestive heart failure attributed reduced ejection fraction EF of 20% with pacemaker and ICD.? Comes to the hospital with no fever just generalized weak not no cough no nausea no vomiting +1 pitting edema of the leg she states she has gained about 5-6 lb the last few days.? 12/28/2023 Nurse reports low blood pressures pt had EF of 20% with pacemaker and ICD in situ, diuretics on board due to low blood pressures, fluids on board slow infusion Pt found to be cdiff positive but denies any diarrhea today has been a problems for past 7 days. Cardiology and ICU MD rounding on pt Pt to moved to ICU for albumin,fluids and phenylephrine infusion to target SBP above 90 midodrine also started Pt also having poor uo, awilda, Pt also found to be in af, Pt has history of tobacco abuse and copd Review of Systems Review of Systems: Tired and weak, some swelling in legs Exam Narrative: GENERAL: Well appearing, no acute distress. HEAD: Normocephalic, atraumatic. NECK: Supple. No adenopathy, no masses. RESPIRATORY: respirations nonlabored. , has bilateral rales, minimal wheezing. CARDIOVASCULAR: Regular rate and rhythm without murmurs, . Peripheral pulses 2+ and equal bilaterally. ABDOMINAL: Soft, nontender, nondistended, no hepatosplenomegaly. Normoactive BS. MUSCULOSKELETAL: no Epigastric and no hypochondrial tenderness SKIN: Warm, dry, some edema in ankles +2 NEURO: A&O X3. Moves all extremities Objective Data Vital Signs Vital Signs: Vital Signs - 24 hr 12/27/23 16:45 12/27/23 19:25 12/27/23 20:47 Temperature 35.6 C L Pulse Rate 101 H 109 H Respiratory Rate 18 18 Blood Pressure 97/80 L 126/74 75/62 L Pulse Oximetry 98 96 Oxygen Delivery Room Air 12/27/23 21:04 12/27/23 21:28 12/27/23 21:52 Temperature Pul
[2023-12-28 14:31] LABS: INR 1.6; Prothrombin Time 20.2 Seconds (11.1-14.7)
[2023-12-28 14:32] LABS: Partial Thromboplastin Time 37.1 Seconds (22.3-36.8)
[2023-12-28] MEDS: HEPARIN SOD/D5W 100 UNITS/ML 25,000 UNITS/250 ML BAG 13 UNITS IV CONT (14:33)
[2023-12-28 14:41] LABS: Basophils Percent Auto 0.6 % (0.2-1.2); Eosinophils Absolute Auto 0.1 K/mm3 (0-0.3); Eosinophils Percent Auto 1.3 % (0-4.4); Hematocrit 40.1 % (37.0-47.0); Hemoglobin 12.4 g/dL (12.0-15.0); Immature Granulocyte Absolute 0.01 K/mm3 (0.00-0.031); Immature Granulocyte Percent A 0.2 % (0-0.5); Lymphocytes Absolute Auto 1.58 K/mm3 (0.9-3.2); Mean Corpuscular HGB Conc 30.9 g/dl (32-36); Mean Corpuscular Volume 97.1 fl (80-100); Mean Platelet Volume 12.9 fl (7.4-10.4); Monocytes Absolute Auto 0.5 K/mm3 (0.1-0.6); Monocytes Percent Auto 10.9 % (2.6-8.5); Neutrophils Absolute Auto 2.6 K/mm3 (1.3-6.7); Nucleated Red Blood Cells Perc 0.6 % (0.0-0.2); Platelet Count Result 128 k/mm3 (150-375); Red Blood Count 4.13 M/mm3 (4.2-5.4); Red Cell Distribution Width 16.3 % (11.5-14.5); White Blood Count 4.8 K/mm3 (4.5-10.0)
[2023-12-28 15:49] LABS: Appearance Urine Cloudy (Clear); Bacteria Urine Rare /hpf; Bilirubin Urine Negative (Negative); Blood Urine Negative (Negative); Color Urine Dark Yellow (Yellow); Glucose Urine UA Negative (Negative); Hyaline Casts Urine Present /lpf; Ketones Urine Negative (Negative); Leukocyte Esterase Ur Negative LEU/UL (Negative); Nitrate Urine Negative (Negative); Protein Urine 2+ mg/dL (Negative); Squamous Epithelial Cell Urine Moderate /hpf (Few); WBC Urine 0-5 /hpf (0-3); White Blood Cell Casts Urine Present /lpf
[2023-12-28 15:54] LABS: Add Urine Microscopic? YES
[2023-12-28] MEDS: NICOTINE (*PBKC) 14 MG PATCH 1 PATCH TRANSDERM (18:11)
[2023-12-28] MEDS: ONDANSETRON INJ 4 MG/2 ML VIAL IV PUSH ×2 (19:51→23:51)
[2023-12-28 21:23] LABS: Anion Gap 8 mmol/L (4-12); Blood Urea Nitrogen 64 mg/dL (7-17); Calcium 8.4 mg/dL (8.4-10.2); Carbon Dioxide 19 mmol/L (22-30); Chloride 101 mmol/L (98-107); Estimated CRCL calculation 36 ml/min; Estimated Glomerular Filt Rate 31; Glucose 102 mg/dL (65-110); Magnesium 2.1 mg/dL (1.6-2.3); Potassium 4.1 mmol/L (3.4-5.0); Sodium 128 mmol/L (137-145)
[2023-12-28] MEDS: NOREPINEPHRINE 8 MG/D5W 250 ML 8 MG/250 ML BAG 9.38 MG IV CONT (21:31)
[2023-12-28 21:37] LABS: Partial Thromboplastin Time > 200.0 Seconds (22.3-36.8)
[2023-12-28] MEDS: SODIUM BICARBONATE 8.4% 50 MEQ/50 ML SYRINGE 100 MEQ IV PUSH (21:59)
[2023-12-28 23:50] LABS: Total Triiodothyronine (T3) 0.76 NG/ML (0.97-1.69)
[2023-12-29] VITALS (19 sets, daily range): BP systolic 64–110; BP diastolic 40–84; PULSE 56–133; RESP 17–27; TEMP 36.3–37.9; O2SAT 91–99
[2023-12-29] MEDS: ACETAMINOPHEN 325 MG TABLET 650 MG PO (00:05)
[2023-12-29] MEDS: VANCOMYCIN HCL 125 MG ORAL CAPSULE PO (00:06)
[2023-12-29] MEDS: ALBUMIN HUMAN 5% 25 GM/500 ML BTL IV CONT (02:23)
[2023-12-29] MEDS: VASOPRESSIN INJ 100 UNITS in DEXTROSE 5% 95 ML IV CONT (02:28)
[2023-12-29] MEDS: AMIODARONE 150 MG/D5W 100 ML 150 MG/100 ML BAG 600 MG IV CONT (03:06)
--- NOTE | 2023-12-29 06:39 | ECG_ITS ---
Measurements Intervals [place] Rate: 110 P: AL: 0 QRS: 246 QRSD: 149 T: 33 QT: 360 QTc: 488 Interpretive Statements ATRIAL FIBRILLATION WITH RAPID VENTRICULAR RESPONSE WITH ABERRANT CONDUCTION OR VENTRICULAR PREMATURE COMPLEXES MARKED RIGHT AXIS DEVIATION [QRS AXIS > 100] RIGHT BUNDLE BRANCH BLOCK [120+ ms QRS DURATION, UPRIGHT V1, 40+ ms S IN I/aVL/V4/V5/V6] ABNORMAL ECG COMPARED TO ECG 12/27/2023 18:01:31 RIGHT BUNDLE BRANCH BLOCK IS NOW SEEN, POSSIBLY RATE DEPENDENT Electronically Signed On 12-29-2023 7:48:56 CDT by Cooper Wilson M.D.
--- NOTE | 2023-12-29 09:04 | PC.NURSE ---
0750-[facility] called and said patient is becoming a tissue donor and they would be arranging transportation.
--- NOTE | 2023-12-29 13:52 | P.PNCROSS_ITS ---
Event Note Event Note Event Note: Yesterday evening patient remained on Jeferson-Synephrine with increasing dose requi rement. I was called by nurse S patient's blood pressure was low despite high dose of Jeferson-Synephrine. I ordered another dose of albumin and started patient on Levophed. Electrolytes were checked and both potassium and magnesium were in acceptable range. CO2 was low suggestive of metabolic acidosis. Bicarb was also given. Later patient became more tachycardic and appeared to be in AFib with RVR with wide complex secondary to bundle-branch block. Initially patient was asymptomatic. I requested nurse to wean off Levophed and started vasopressin. Later patient became more symptomatic and complaining of nausea. I ordered amiodarone bolus and infusion for rate control. Patient was on heparin for anticoagulation. Levophed by that time had been weaned off. I did not received any call after that and it appears the patient after had a cardiac arrest and later . It was management by bedside ER physician and hospitalist.
--- NOTE | 2023-12-30 19:47 | ED.PROCEDURE ---
Procedures Intubation Intubation Date: 12/29/23 Intubation Time: 03:31 Consent: Implied, patient is full code active CPR in progress. Sedative: none Paralytic: succinylcholine Mg given: 100 Laryngoscope: fiber optic video scope Assist device used: fiber optic device ET tube size: 7.5 Tube secured depth (cm): 21 Tube secured location: teeth Tube placement confirmation: visualized tube passing through cords and confirmation by capnometry Intubation complications: none
--- NOTE | 2024-01-10 12:07 | PM.DDS ---
Discharge Summary Date and Time Date of : 12/29/23 Time of : 04:52 Provider Pronounced By: Dr. Chino Probable Cause of Probable Cause of : Acute respiratory failure Acute CHF exacerbation Heart failure with reduced ejection fraction. EF 20% Severe hypotension CRF stage III COPD/acute respiratory failure with hypoxemia Cdiff positive Summary Hospital Course: Presented to the emergency room with myalgia nausea headache and diarrhea.? Has extensive past medical history of COPD, congestive heart failure attributed reduced ejection fraction EF of 20% with pacemaker and ICD.? Comes to the hospital with no fever just generalized weak not no cough no nausea no vomiting +1 pitting edema of the leg she states she has gained about 5-6 lb the last few days.? 12/28/2023 Nurse reports low blood pressures pt had EF of 20% with pacemaker and ICD in situ, diuretics on board due to low blood pressures, fluids? on board slow infusion Pt found to be cdiff positive but denies any diarrhea today has been a problems for past 7 days. Cardiology and ICU MD rounding on pt Pt to moved to ICU for albumin,fluids and phenylephrine infusion to target SBP above 90 midodrine also started Pt also having poor uo, awilda, Pt also found to be in af, Pt has history of tobacco abuse and copd 12/29/2023 Yesterday evening patient remained on Jeferson-Synephrine with increasing dose requirement.? I was called by nurse S patient's blood pressure was low despite high dose of Jeferson-Synephrine.? I ordered another dose of albumin and started patient on Levophed.? Electrolytes were checked and both potassium and magnesium were in acceptable range.? CO2 was low suggestive of metabolic acidosis.? Bicarb was also given.? Later patient became more tachycardic and appeared to be in AFib with RVR with wide complex secondary to bundle-branch block.? Initially patient was asymptomatic.? I requested nurse to wean off Levophed and started vasopressin.? Later patient became more symptomatic and complaining of nausea.? I ordered amiodarone bolus and infusion for rate control.? Patient was on heparin for anticoagulation.? Levophed by that time had been weaned off.? I did not received any call after that and it appears the patient after had a cardiac arrest and later .? It was management by bedside ER physician and hospitalist. Additional Data Confirmation of as documented by pronouncing clinician: Pupillary Reflex, Palpable Pulses, Response to Stimuli, Heart Tones and Breath Sounds Name of Provider Notified: Dr. Chino Time Provider Notified: 04:52 Provider Requests Autopsy: No Family Requests Autopsy: No Pharmacy Delivery Driver Notified: Yes Date [facility] Notified of : 12/29/23 Time [facility] Notified of : 05:33
== END 2023-12-29 04:52 | disposition expired | DRG 291 ==
LOC: ANHED 18:09 → ANHIMU 12-28 → ANHICU 12-28 11:53
PROVIDERS: Internal Medicine; Internal Medicine Cardiovascular Disease; Admitting Provider Internal Medicine; Emergency Provider Student in an Organized Health Care Education/Training Program; PCP Internal Medicine; Visit Provider Family Medicine
DX: I13.0 Hypertensive heart and chronic kidney disease with heart failure and stage 1 through stage 4 chronic kidney disease, or unspecified chronic kidney disease (principal); I50.23 Acute on chronic systolic (congestive) heart failure; J96.01 Acute respiratory failure with hypoxia; I69.351 Hemiplegia and hemiparesis following cerebral infarction affecting right dominant side; A04.72 Enterocolitis due to Clostridium difficile, not specified as recurrent; N17.9 Acute kidney failure, unspecified; I48.20 Chronic atrial fibrillation, unspecified; I46.9 Cardiac arrest, cause unspecified; R57.1 Hypovolemic shock; I42.8 Other cardiomyopathies; I95.89 Other hypotension; N18.30 Chronic kidney disease, stage 3 unspecified; E78.5 Hyperlipidemia, unspecified; D69.6 Thrombocytopenia, unspecified; F32.A Depression, unspecified; Z95.810 Presence of automatic (implantable) cardiac defibrillator; Z20.822 Contact with and (suspected) exposure to COVID-19; F17.210 Nicotine dependence, cigarettes, uncomplicated; Z79.01 Long term (current) use of anticoagulants; Z98.890 Other specified postprocedural states; J43.9 Emphysema, unspecified
CPT/HCPCS: 36415; 36569; 36600; 71045; 71250; 74176; 80048; 80053; 81001; 82533; 82550; 82805; 83605; 83735; 83880; 84145; 84439; 84443; 84480; 85025; 85055; 85380; 85610; 85730; 87493; 87637; 93005; 94002; 96361; 96374; 99284; 99285; A9270; J0171; J0282; J1644; J2371; J2405; J3475; J7030; J7060; J7120; P9045